=== PATIENT | female | born 1950 | race Caucasian/White ===

== ENCOUNTER 2018-05-08 13:59 | Outpatient (CLI) | payer MEDICARE, OTHER ==
[~2018-05-08] VITALS: Ht 157.5 cm; Wt 66.3 kg
[~2018-05-08 13:59] MED LIST: ASCO1TAB17 PO; CA C1TAB73 PO; CALC500T7 PO; CYCL10TA9 PO; DESV50TA PO; DOCU-165 PO; EST45C VG; HYDR1TAB66 PO; LACT1CAP62 PO; LORA1TAB PO; METO5TAB79 PO; MIRT15TA PO; MULT-974 PO; NAPR220C11 PO; OMG1KC PO; PANT40TA PO; SCR1T1 PO; TRAM50TA2 PO; [UNRECOGNIZED DRUG - SUPPLY]
[2018-05-08] MEDS ORDERED: EST30C VG (14:29)
[2018-05-08] MEDS ORDERED: MIRT15TA PO (14:29)
[2018-05-08] MEDS ORDERED: LORA1TAB PO (14:29)
[2018-05-08] MEDS ORDERED: TRAM50TA2 PO (14:29)
[2018-05-08] MEDS ORDERED: POLY17PO6 PO (14:29)
[2018-05-08] MEDS ORDERED: OMG1KC PO (14:29)
[2018-05-08] MEDS ORDERED: PANT40TA3 PO (14:29)
[2018-05-08] MEDS ORDERED: LACT1CAP72 PO (14:29)
[2018-05-08] MEDS ORDERED: CALC-823 PO (14:29)
[2018-05-08] MEDS ORDERED: CHOL10007 PO (14:29)
[2018-05-08] MEDS ORDERED: DOCU-163 PO (14:29)
[2018-05-08] MEDS ORDERED: OXYQ113.2 VG (14:29)
[2018-05-08] MEDS ORDERED: MULT-35 PO (14:29)
[2018-05-08] MEDS ORDERED: ASCO500C15 PO (14:29)
[2018-05-08] MEDS ORDERED: LEVO50TA PO (14:29)
[2018-05-08] MEDS ORDERED: LIFI1DRO OP (14:29)
[2018-05-08] MEDS ORDERED: HYDR-3812 PO (14:29)
[2018-05-08] MEDS ORDERED: DICL75TA2 PO (14:29)
[2018-05-08 14:39] VITALS: BP 149/77
[2018-05-08 15:32] LABS: BASOPHILS # (AUTO) 0.1 10^3/uL (0.0-0.1); BASOPHILS % (AUTO) 2 % (0-10); EOSINOPHILS # (AUTO) 0.2 10^3/uL (0.0-0.3); EOSINOPHILS % (AUTO) 3 % (0-10); HEMATOCRIT 38 % (35-52); HEMOGLOBIN 12.6 G/DL (11.5-16.0); LYMPHOCYTES % (AUTO) 25 % (12-44); MEAN CORPUSCULAR HEMOGLOBIN 28 PG (25-34); MEAN CORPUSCULAR HGB CONC 33 G/DL (32-36); MEAN CORPUSCULAR VOLUME 84 FL (80-99); MEAN PLATELET VOLUME 9.3 FL (7.4-10.4); MONOCYTES # (AUTO) 0.6 X 10^3 (0.0-1.0); MONOCYTES % (AUTO) 8 % (0-12); NEUTROPHILS % (AUTO) 63 % (42-75); PLATELET COUNT 282 10^3/uL (130-400); RED BLOOD COUNT 4.58 10^6/uL (4.35-5.85); RED CELL DISTRIBUTION WIDTH 14.3 % (10.0-14.5)
== END 2018-05-08 15:30 | disposition home or self-care (01) ==
LOC: PREOP 13:59
PROVIDERS: ATTEND Obstetrics & Gynecology
DX: Z01.812 Encounter for preprocedural laboratory examination (principal); Z11.2 Encounter for screening for other bacterial diseases; N81.10 Cystocele, unspecified
CPT/HCPCS: 36415; 85025; 86850; 86900; 86901; 87081

== ENCOUNTER 2018-05-15 08:49 | Day surgery (SDC) | payer MEDICARE, OTHER ==
[~2018-05-15] VITALS: Ht 157.5 cm; Wt 66.3 kg
[~2018-05-15 08:49] MED LIST changes: +ASCO500C15 PO; +CALC-823 PO; +CHOL10007 PO; +DICL75TA2 PO; +DOCU-163 PO; +EST30C VG; +HYDR-3812 PO; +LACT1CAP72 PO; +LEVO50TA PO; +LIFI1DRO OP; +MULT-35 PO; +OXYQ113.2 VG; +PANT40TA3 PO; +POLY17PO6 PO
[2018-05-15] MEDS ORDERED: LACTATED RINGERS 1,000 ML IV ONE (08:54)
[2018-05-15] MEDS ORDERED: LACTATED RINGERS 1,000 ML IV PRN (08:54)
[2018-05-15] MEDS ORDERED: ceFAZolin INJECTION 1,000 MG in NS (IVPB) 50 ML IV ONE (09:00)
[2018-05-15] MEDS ORDERED: metroNIDAZOLE 500MG/100ML IVPB 100 ML IV ONE (09:00)
--- NOTE | 2018-05-15 09:08 | Progress Note-Pre Operative ---
Pre-Operative Progress Note H&P Reviewed The H&P was reviewed, patient examined and no changes noted. Date Seen by Provider: May 15, 2018 Time Seen by Provider: 09:00 Date H&P Reviewed: May 15, 2018 Time H&P Reviewed: 09:15 Pre-Operative Diagnosis: POP, Cystocele BRITTANI DE SANTIAGO DO May 15, 2018 09:08
[2018-05-15] MEDS ORDERED: proPOfol 200 MG/20 ML (DIPRIVAN) VIAL IV ONE ×2 (09:49→10:56)
[2018-05-15] MEDS ORDERED: LIDOCAINE PF 2% 5 ML (XYLOCAINE) VIAL ONE (09:49)
[2018-05-15] MEDS ORDERED: SEVOFLURANE (ULTANE) 15 ML INHAL SOLN ONE ×9 (09:49→12:29)
[2018-05-15] MEDS ORDERED: ROCURONIUM 10 MG/ML 5 ML SYRINGE IV ONE (09:49)
[2018-05-15] MEDS ORDERED: fentaNYL INJECTION 100 MCG/2 ML AMP ONE (09:49)
[2018-05-15 09:50] VITALS: BP 125/74
[2018-05-15] MEDS ORDERED: MIDAZOLAM 2 MG/2 ML (VERSED) VIAL ONE (09:50)
[2018-05-15] MEDS ORDERED: FAMOTIDINE 20MG/2ML IV (PEPCID) ONE (09:56)
[2018-05-15] MEDS ORDERED: FAMOTIDINE 20MG/2ML IV (PEPCID) IV ONE (10:00)
[2018-05-15] MEDS ORDERED: BUPIVACAINE 0.25% 30 ML (SENSORCAINE) VIAL ONE (10:03)
[2018-05-15] MEDS ORDERED: LACTATED RINGERS 1,000 ML IV SCH (12:00)
[2018-05-15] MEDS ORDERED: VASOPRESSIN INJECTION 20 UNIT/ML VIAL ONE (12:05)
[2018-05-15] MEDS ORDERED: NS (IVPB) 100 ML ONE (12:07)
[2018-05-15] MEDS ORDERED: ESTRADIOL VAGINAL CREAM 42.5 GM (ESTRACE) VG ONE (12:16)
--- NOTE | 2018-05-15 12:50 | Discharge Inst-Women's Service ---
Discharge Inst-Women's Serv Depart Medication/Instructions New, Converted or Re-Newed RX: RX on Chart Consults/Follow Up Additional Follow Up: Yes Orders/Referrals Debra Cody in 7-10 days, Dr. Narvaez in 8 weeks Activity Activity: Activity as Tolerated Driving Instructions: No Driving for 1 Week NO SMOKING: NO SMOKING Nothing Inside Vagina: No Douching, No [place], No Tampons Diet Discharge Diet: No Restrictions Symptoms to Report to : Bleeding Excessive, Pain Increased, Fever Over 101 Degrees F, Vaginal Bleeding Increase, Questions/Concerns For Any Problems or Questions: Contact Your Physician Skin/Wound Care Infection Signs and Symptoms: Increased Redness, Foul Odor of Wound, Increased Drainage, Skin Itchy or Has a Rash, Increased Swelling, Temperature Above 101 F Operative Area Clean and Dry: Keep Incision Clean/Dry Stitches/[place]/Dermabond: Dermabond, Care of Stitches Bathing Instructions: BRITTANI June DO May 15, 2018 12:50 pm
[2018-05-15] MEDS ORDERED: SIME80TA16 PO (12:52)
[2018-05-15] MEDS ORDERED: HYDR-34 PO (12:52)
[2018-05-15] MEDS ORDERED: IBUP-844 PO (12:52)
[2018-05-15] MEDS ORDERED: DOCU100C37 PO (12:52)
[2018-05-15] MEDS ORDERED: DOCUSATE SODIUM 100 MG (COLACE) CAP PO PRN ×2 (13:00→15:30)
[2018-05-15] MEDS ORDERED: HYDROmorphone 2 MG/ML VIAL (DILAUDID) IV PRN (13:00)
[2018-05-15] MEDS ORDERED: CHLORASEPTIC LOZENGE MM PRN (13:00)
[2018-05-15] MEDS ORDERED: morphine INJ 10 MG/ML 1ML (SYR OR VIAL) IVP ONE (13:00)
[2018-05-15] MEDS ORDERED: ZOLPIDEM 5 MG (AMBIEN) TAB PO PRN (13:00)
[2018-05-15] MEDS ORDERED: ONDANSETRON 4 MG/2 ML (SDV) Z0FRAN IVP PRN (13:00)
[2018-05-15] MEDS ORDERED: ANTACID SUSP 30 ML UDC (MYLANTA) PO PRN (13:00)
[2018-05-15] MEDS ORDERED: MEPERIDINE (DEMEROL) INJ 50 MG/ML IVP ONE (13:00)
[2018-05-15] MEDS ORDERED: ONDANSETRON 4 MG/2 ML (SDV) Z0FRAN IV PRN (13:00)
[2018-05-15] MEDS ORDERED: SIMETHICONE 80 MG (MYLICON) CHEW PO PRN (13:00)
[2018-05-15] MEDS: LACTATED RINGERS 1,000 ML IV SCH ×3 (13:03→22:05)
--- NOTE | 2018-05-15 13:05 | Operative Report ---
Operative Report Date of Procedure/Surgery May 15, 2018 Surgeon (s) BRITTANI DE SANTIAGO DO Director Human Services (s): Debra ZARAGOZAP Post-Operative Diagnosis Same Procedure Performed Robotic-assisted total laparoscopic hysterectomy with bilateral salpingo-oophorectomy Anterior colporrhaphy Description of Procedure Anesthesia Type: General Estimated blood loss (mL): 50 ML's Specimen(s) collected/removed Uterus bilateral fallopian tubes and ovaries Packing: Vaginal packing Description of the Procedure Patient was taken to the operating room where general anesthesia was found to be adequate she's placed in the dorsal lithotomy position prepped and draped in the normal sterile fashion. A timeout was performed. Velez catheters placed using sterile technique. A weighted speculum that this is then inserted into the patient's vagina, a long Allis clamp was used to grasp the cervix at the 12 o'clock position. An 0 Vicryl sutures placed the anterior lip of the cervix. I then use a suture is my retraction point. The Allis clamp was removed. I then gently sound the uterine cavity depth which is found to be 5 cm. Incidentally perforating the uterus and the process of dilating the cervix with Hegar dilators, to go ahead and place the Irma uterine manipulator using a 3 cm colpotomy ring and an 8 cm tip. Once this is placed and secured against the cervix I remove all other instruments from the patient's vagina. A change of gloves is then performed and I take my attention to the abdomen where infraumbilically I infiltrate this area using quarter percent Marcaine. I then make an 8 mm incision using the knife and introduce a varies needle to the incision to intraperitoneal placement is confirmed using a saline drop test. I did proceed with insufflation using CO2 gas. An opening pressure of 4 mmHg is noted I proceed to a max pressure of 15 mmHg at which point I removed the varies needle and introduce an 8 mm blunt da Angélica camera trocar. Again I am able to confirm intraperitoneal placement using the da Angélica laparoscope. I did have the patient placed in steep Trendelenburg and am able to see all of my findings as described above. I placed 2 lateral trochars disease are both 8 mm trochars approximately 8 cm lateral to the infra umbilical trocar. Once these are in place I bring in the da Angélica robot and docked in the appropriate fashion placing the da Angélica vessel sealer and the left hand and the monopolar terry in the right hand. I then take my place at the operative console. I perform the following dissection bilaterally: Starting at the IP ligament, I isolate this and bipolar it with the vessel sealer and then cut it with the same. The round ligament is treated the same. I am then able to grasp the entire broad ligament using the vessel sealer and take this dissection down to the lower uterine segment, where the anterior leaflet is dissected to the anterior vaginal fornix and the posterior leaflet is taken to the posterior vaginal fornix this allows me to skeletonize the uterine vessels laterally. I can then grasp them and seal them using the vessel sealer. I then create a colpotomy using the monopolar terry at 12 oclock and taken then circumferentially around the vaginal cuff amputating the vagina from the cervix. The uterine and entire specimen is then removed through the vagina. The lateral vaginal apices are then colposuspended to the uterosacral ligaments using 2-0 vicryl suture in a figure of 8 fashion. The remainder of the cuff is then closed using 2-0 v-lock. I then undock the robot and proceed laparoscopically. I copiously irrigate the pelvis using NS, and no active bleeding is noted from any of my dissection planes. I place flowseal over all of my planes of dissection. The lateral trochars are then removed under direct visualization, the infraumbilcal trochar is then removed after releasing insufflation and introducing 10 ml of .25% marcaine. Skin is reapproximated using 4-0 monocryl in subcuticular fashion. Skin affix is applied and bandaids are placed over theses incisions. I then take my attention back to the vaginal where i infiltrated the margins of the cystocele using vasopressin a concentration of 20 u in 100 ml of NS. Once the tissue is blanched, I make a small incision at the distal margin, and undermine the tissue down the midline using Metzenbaum scissors. I then cut down this margin, and grasp the lateral aspects of the incision using Tclamps. I bluntly dissect the underlying vesicovaginal facia, and then once I have a clear margin, I reapproximate the same facia using 0 vicryl in plication fashion. Excess mucosa is then trimmed, and the incision of the cystocele is reapproximated down the midline of the cystocele using 3-0 vicryl suture in the a running locked fashion. The vagina is then packed using vaginal packing soaked in estrace cream. Velez catheter is left in place. Patient tolerated the procedure well and taken to recovery in stable condition. Lap and spong count is correct at the end of the procedure. Instrument count is correct at well. 1 gm of Ancef and 500 mg of Flagyl are given preoperatively for infection prophylaxis. Findings of the Procedure A grade 2 to grade 3 prolapsed cervix with a grade 3 to grade 4 cystocele. Significant filmy adhesions of the posterior cul-de-sac to the descending sigmoid colon. Allergies and Home Medications Allergies Coded Allergies: meloxicam (Unverified Adverse Reaction, Mild, NAUSEA, 05/15/18) Home Medications Ascorbic Acid 500 Mg Capsule.er, 500 MG PO BID, (Reported) Calcium Carbonate 500 Mg Tablet, 500 MG PO BID, (Reported) Cholecalciferol (Vitamin D3) 1,000 Unit Capsule, 1,000 UNIT PO DAILY, (Reported) Desvenlafaxine Succinate 50 Mg Tab.er.24h, 50 MG PO DAILY Prescribed by: RODRÍGUEZ HINES on 08/31/15 1840 Diclofenac Sodium 75 Mg Tablet.dr, 75 MG PO BID, (Reported) Docusate Sodium 100 Mg Capsule, 100 MG PO DAILY, (Reported) Docusate Sodium 100 Mg Capsule, 100 MG PO BID PRN for CONSTIPATION-1ST LINE Prescribed by: BRITTANI DE SANTIAGO on 05/15/18 125 Estrogens Conjugated 30 Gm Cr, 30 GM VG WEEK, (Reported) Hydrocodone Bit/Acetaminophen 1 Ea Tablet, 2 EA PO Q6H PRN for Pain-See Instructions Prescribed by: BRITTANI DE SANTIAGO on 05/15/18 125 Hydrocodone/Acetaminophen 1 Each Tablet, 1 EACH PO Q4-6HR PRN for PAIN-MODERATE, (Reported) Ibuprofen 600 Mg Tablet, 600 MG PO Q6H PRN for PAIN-MODERATE Prescribed by: BRITTANI DE SANTIAGO on 05/15/18 125 Lactobacillus Combo No.10 1 Each Capsule, 1 EACH PO DAILY, (Reported) Levothyroxine Sodium 50 Mcg Tablet, 50 MCG PO DAILY, (Reported) Lifitegrast 1 Each Droperette, 1 EACH OP BID, (Reported) Lorazepam 1 Mg Tablet, 1 MG PO TID, (Reported) Mirtazapine 15 Mg Tablet, 7.5 MG PO HS, (Reported) Multivitamin 1 Each Tablet, 1 EACH PO DAILY, (Reported) [place] 3 Polyunsat Fatty Acids 1,000 Mg Cap, 1,000 MG PO BID, (Reported) Oxyquinoline/Sod.lauryl Sulfat 113.4 Gm Jelly.appl, 113.4 GM VG 2X PER WEEK, ( Reported) Pantoprazole Sodium 40 Mg Tablet.dr, 40 MG PO DAILY, (Reported) Polyethylene Glycol 3350 17 Gm Powd.pack, PO HS, (Reported) Simethicone 80 Mg Tab.chew, 40 MG PO TID PRN for INDIGESTION 2ND LINE Prescribed by: BRITTANI DE SANTIAGO on 05/15/18 1252 Tramadol HCl 50 Mg Tablet, 50-100 MG PO TID PRN for PAIN-MODERATE, (Reported) Patient Home Medication List Home Medication List Reviewed: BRITTANI Howard DO May 15, 2018 13:05
--- NOTE | 2018-05-15 13:40 | NUR ---
PT ON WOMENS SERVICES FROM [facility] AT THIS TIME. REPORT RECEIVED FROM GIGI LARES. THIS RN INTRODUCES SELF TO PT AND FAMILY. PHYSICAL ASSESSMENT. VSS. PT CO PAIN. THIS RN WILL CHECK CHART AND GIVE MEDICAITON INDICATED. CALL LIGHT WITHIN REACH. FAMILY REMAINS AT BEDSIDE.
[2018-05-15 13:45] VITALS: BP 124/70
[2018-05-15] MEDS: KETOROLAC 30 MG/ML VIAL IV PRN ×2 (14:13→21:26)
--- NOTE | 2018-05-15 14:30 | NUR ---
DR DE SANTIAGO CALLED BY THIS RN. NO ANSWER, VOICEMAIL LEFT TO RETURN CALL. WOULD LIKE TO TALK TO ABOUT PT TAKING HOME MEDS.
[2018-05-15] MEDS ORDERED: [UNRECOGNIZED DRUG - OTHER] VG SCH (15:30)
[2018-05-15] MEDS ORDERED: SIMETHICONE PO PRN (15:30)
[2018-05-15] MEDS ORDERED: PATIENT MAY USE OWN MEDS, ALL MC SCH (15:30)
[2018-05-15] MEDS ORDERED: OXYQUINOLINE VG SCH (15:30)
[2018-05-15] MEDS ORDERED: ESTROGENS CONJ. CREAM 30 GM (PREMARIN) TUBE VG SCH (15:30)
[2018-05-15 16:00] VITALS: BP 139/62
[2018-05-15] MEDS: HYDROcodone/APAP 7.5 MG/325 MG (LORTAB, LORCET PLUS) TABLET PO PRN (19:00)
[2018-05-15 19:50] VITALS: BP 117/61
[2018-05-15] MEDS ORDERED: OMEGA 3 (FISH OIL) 1000 MG CAP PO SCH (21:00)
[2018-05-15] MEDS ORDERED: CALCIUM CARBONATE 500 MG (TUMS) TAB.CHEW PO SCH (21:00)
[2018-05-15] MEDS ORDERED: MIRTAZAPINE 15 MG (REMERON) TAB PO SCH (21:00)
[2018-05-15] MEDS: ASCORBIC ACID (VIT C) 500 MG TABLET PO SCH (21:28)
[2018-05-15] MEDS: LIFITEGRAST EYE OU SCH (21:46)
[2018-05-16 00:35] VITALS: BP 99/59
[2018-05-16 04:57] VITALS: BP 126/69
[2018-05-16] MEDS: KETOROLAC 30 MG/ML VIAL IV PRN (04:57)
[2018-05-16] MEDS: LACTATED RINGERS 1,000 ML IV SCH (06:05)
[2018-05-16] MEDS: HYDROcodone/APAP 7.5 MG/325 MG (LORTAB, LORCET PLUS) TABLET PO PRN ×2 (06:33→12:30)
[2018-05-16] MEDS: LIFITEGRAST EYE OU SCH (08:53)
[2018-05-16] MEDS: ASCORBIC ACID (VIT C) 500 MG TABLET PO SCH (08:54)
[2018-05-16 09:00] VITALS: BP 116/61
[2018-05-16] MEDS ORDERED: MULTIVITAMIN FOR HER PO SCH (09:00)
[2018-05-16] MEDS ORDERED: DOCUSATE SODIUM 100 MG (COLACE) CAP PO SCH (09:00)
[2018-05-16] MEDS ORDERED: VITAMIN D3 1,000 UNITS (CHOLECALCIFEROL) TABLET PO SCH (09:00)
[2018-05-16] MEDS ORDERED: LACTOBACILLUS COMBO NO 10 PO SCH (09:00)
[2018-05-16] MEDS ORDERED: PANTOPRAZOLE 40 MG (PROTONIX) TAB PO SCH (09:00)
[2018-05-16] MEDS ORDERED: DICLOFENAC SOD 75 MG (VOLTAREN) TAB NON-FORMULARY PO SCH (09:00)
[2018-05-16] MEDS ORDERED: LEVOTHYROXINE 50 MCG (LEVOTHROID) TAB PO SCH (09:00)
[2018-05-16] MEDS ORDERED: [UNRECOGNIZED DRUG - OTHER] PO SCH (09:00)
[2018-05-16] MEDS ORDERED: NON-FORMULARY MEDICATION 1 EA EA (Cholecalciferol (Vitamin D3) (Vitamin D3) 1,000 UNIT) PO SCH (09:00)
[2018-05-16] MEDS ORDERED: [UNRECOGNIZED DRUG - OTHER] PO SCH (09:00)
[2018-05-16] MEDS ORDERED: IBUPROFEN 600 MG (MOTRIN) TAB PO PRN (13:00)
[2018-05-16] MEDS ORDERED: BENZOCAINE/MENTHOL (DERMOPLAST) 56 ML CAN TP ONE (13:50)
--- NOTE | 2018-05-16 13:50 | NUR ---
OMAR MONTANA demonstrates understanding of discharge instructions and accurately returns instructions upon questioning. Copy of Post-Discharge Instructions and Medication Discharge Instructions given to PATIENT. OMAR MONTANA is able to manage continuing needs after discharge. Patients belongings returned to PATIENT. Skin dry and intact; no breakdown noted. Patient discharged from 3306-1 on 05-16-18 at 1350. OMAR MONTANA left floor via W/C, accompanied by STAFF AND FAMILY.
== END 2018-05-16 13:50 | disposition home or self-care (01) ==
LOC: SDC 08:49 → WS 13:00 → SDC 05-16 13:50
PROVIDERS: ATTEND Obstetrics & Gynecology
DX: N81.11 Cystocele, midline (principal); N87.9 Dysplasia of cervix uteri, unspecified; N83.201 Unspecified ovarian cyst, right side; N83.312 Acquired atrophy of left ovary; N70.11 Chronic salpingitis; K21.9 Gastro-esophageal reflux disease without esophagitis; K31.84 Gastroparesis; Z79.899 Other long term (current) drug therapy
CPT/HCPCS: 88307; 94664

== ENCOUNTER → 2018-08-18 | Outpatient (CLI) | payer MEDICARE, OTHER ==
[~2018-08-18] MED LIST changes: +DOCU100C37 PO; +HYDR-34 PO; +IBUP-844 PO; +SIME80TA16 PO
--- NOTE | 2018-08-19 16:32 | Diagnostic Imaging Report ---
INDICATION: Screening. COMPARISON: 05/15/2017 and 08/17/2015. TECHNIQUE: 2D and 3D bilateral screening mammography was performed with CAD. FINDINGS: Scattered fibroglandular densities are identified bilaterally. The parenchymal pattern is stable. No mass or malignant appearing microcalcifications are seen. There are benign parenchymal and vascular calcifications. The axillae are unremarkable. IMPRESSION: No mammographic features suspicious for malignancy are identified. ACR BI-RADS Category 2: Benign findings. Result letter will be mailed to the patient. Note: At least 10% of breast cancer is not imaged by mammography. Dictated by: Dictated on workstation # [id number]
== END ==
LOC: RAD 14:39
PROVIDERS: ATTEND Internal Medicine
DX: Z12.31 Encounter for screening mammogram for malignant neoplasm of breast (principal)
CPT/HCPCS: 77067

== ENCOUNTER → 2020-03-31 | Outpatient (CLI) | payer MEDICARE, OTHER ==
[~2020-03-31] MED LIST changes: +ACHD5005 PO; -ASCO500C15 PO; +ASCO500C18 PO; -HYDR-3812 PO; -PANT40TA3 PO; +PANT40TA52 PO; +TRM50T PO
--- NOTE | 2020-04-01 10:36 | Diagnostic Imaging Report ---
INDICATION: Routine screening. COMPARISON is made with prior mammograms of 08/18/2018 and 05/15/2017. 2-D and 3-D bilateral screening mammography was performed with CAD. Both breasts are heterogeneously dense, limiting the sensitivity of mammography. No mass or malignant appearing microcalcifications are seen. Axillae are unremarkable. IMPRESSION: BI-RADS Category 1. No mammographic features suspicious for malignancy are identified. ACR BI-RADS Category 1: Negative. Result letter will be mailed to the patient. Note: At least 10% of breast cancer is not imaged by mammography. Dictated by: Dictated on workstation # [id number]
== END ==
LOC: RAD 15:15
PROVIDERS: ATTEND Internal Medicine
DX: Z12.31 Encounter for screening mammogram for malignant neoplasm of breast (principal)
CPT/HCPCS: 77063; 77067

== ENCOUNTER → 2021-06-26 | Outpatient (CLI) | payer MEDICARE, OTHER ==
[~2021-06-26] MED LIST changes: +MIRT-96 PO; -MIRT15TA PO
--- NOTE | 2021-06-27 13:28 | Diagnostic Imaging Report ---
INDICATION: Routine screening. COMPARISON: 03/31/2020 and 08/18/2018. TECHNIQUE: 2D and 3D bilateral screening mammography was performed with CAD. FINDINGS: Both breasts are heterogeneously dense, limiting the sensitivity of mammography. The parenchymal pattern is stable. No mass or malignant-appearing microcalcifications are seen. The axillae are unremarkable. IMPRESSION: No mammographic features suspicious for malignancy are identified. ACR BI-RADS Category 1: Negative. Result letter will be mailed to the patient. Note: At least 10% of breast cancer is not imaged by mammography. Dictated by: Dictated on workstation # [id number]
== END ==
LOC: RAD 14:45
PROVIDERS: ATTEND Internal Medicine
DX: Z12.31 Encounter for screening mammogram for malignant neoplasm of breast (principal)
CPT/HCPCS: 77063; 77067

== ENCOUNTER → 2022-06-29 | Outpatient (CLI) | payer MEDICARE, OTHER ==
--- NOTE | 2022-06-29 17:40 | Diagnostic Imaging Report ---
INDICATION: Routine screening. Comparison is made with prior mammogram of 06/26/2021 and 03/31/2020. 2-D and 3-D bilateral screening mammography was performed with CAD. Both breasts are heterogeneously dense, limiting the sensitivity of mammography. The parenchymal pattern is stable. No mass or malignant-appearing microcalcifications are seen. Axillae are unremarkable. IMPRESSION: No mammographic features suspicious for malignancy are identified. ACR BI-RADS Category 1: Negative. Result letter will be mailed to the patient. Note: At least 10% of breast cancer is not imaged by mammography. BI-RADS Category 1 Dictated by: Dictated on workstation # [id number]
== END ==
LOC: RAD 14:45
PROVIDERS: ATTEND Internal Medicine
DX: Z12.31 Encounter for screening mammogram for malignant neoplasm of breast (principal)
CPT/HCPCS: 77063; 77067

== ENCOUNTER 2023-01-09 05:35 | Outpatient (CLI) | payer MEDICARE, OTHER ==
[~2023-01-09] VITALS: Ht 157.5 cm; Wt 68.0 kg
[2023-01-10] MEDS ORDERED: DICL35CA3 PO (14:41)
== END 2023-01-10 14:43 | disposition home or self-care (01) ==
LOC: PREOP 05:35
PROVIDERS: ATTEND Surgery
DX: Z01.818 Encounter for other preprocedural examination (principal)

== ENCOUNTER 2023-01-16 11:49 | Day surgery (SDC) | payer MEDICARE, OTHER ==
[~2023-01-16] VITALS: Ht 157.5 cm; Wt 68.0 kg
[~2023-01-16 11:49] MED LIST changes: +DICL35CA3 PO
--- NOTE | 2023-01-16 12:01 | Progress Note-Pre Operative ---
Pre-Operative Progress Note Date of Available H&P: Jan 16, 2023 Date H&P Reviewed: Jan 16, 2023 Time H&P Reviewed: 11:30 History & Physical: No changes noted Pre-Operative Diagnosis: screening o DHARA MARADIAGA MD Jan 16, 2023 12:01
--- NOTE | 2023-01-16 12:02 | Discharge Inst-Surgical ---
D/C Lap Instructions-ASHWINI Follow Up Activity as tolerated High Fiber Diet 25g or more per day Avoid Alcohol, Caffeine, Spicy [place] and Acid foods. Drink 64 fluid oz or more of fluids per day. Symptoms to Report: Fever over 101 degree F, Nausea/Vomiting If any problems/questions: Contact your physician or go to Emergency Room DHARA MARADIAGA MD Jan 16, 2023 12:02
[2023-01-16] MEDS ORDERED: ONDANSETRON 4 MG ORAL DISSOLVE TABLET PO PRN (12:15)
[2023-01-16] MEDS ORDERED: ONDANSETRON INJECTION 4 MG/2 ML (SDV) IVP PRN (12:15)
[2023-01-16] MEDS ORDERED: LACTATED RINGERS 1,000 ML 1,000 ML IV STA (12:42)
[2023-01-16] MEDS ORDERED: LIDOCAINE JELLY 2% 6 ML SYRINGE ONE (12:44)
[2023-01-16] MEDS ORDERED: LIDOCAINE JELLY 2% 6 ML SYRINGE MM PRN (12:45)
[2023-01-16 12:49] VITALS: BP 150/85
[2023-01-16 13:50] VITALS: BP 115/56
[2023-01-16 13:55] VITALS: BP 115/56
--- NOTE | 2023-01-16 14:04 | Progress Note-Post Operative ---
Post-Operative Progess Note Surgeon (s)/Windows Software Developer (s) Surgeon DHARA MARADIAGA MD Windows Software Developer: none Pre-Operative Diagnosis screening colo Post-Operative Diagnosis mild chronic stage 2 ext and int hemorrhoids, mild sigmoid diverticulosis, mild sigmoid colitis. Procedure & Operative Findings Date of Procedure 01/16/23 Procedure Performed/Findings colonoscopy with bx. Anesthesia Type mac Estimated Blood Loss Estimated blood loss (mL): minimal Specimens/Packing Specimens Removed sigmoid colon DHARA MARADIAGA MD Jan 16, 2023 14:04
[2023-01-16 14:25] VITALS: BP 119/57
--- NOTE | 2023-01-16 14:37 | Anesthesia-General Post-Op ---
MAC Patient Condition Mental Status/LOC: Same as Preop Cardiovascular: Satisfactory Nausea/Vomiting: Absent Respiratory: Satisfactory Pain: Controlled Complications: Absent Post Op Complications Complications None Follow Up Care/Instructions Patient Instructions None needed. Anesthesiology Discharge Order Discharge Order Patient is doing well, no complaints, stable vital signs, no apparent adverse anesthesia problems. No complications reported per nursing. CATY KASPER CRNA Jan 16, 2023 14:37
[2023-01-16 14:40] VITALS: BP 119/57
--- NOTE | 2023-01-16 19:02 | OPERATIVE REPORT ---
DATE OF SERVICE: 01/16/2023 ATTENDING PRIMARY CARE PHYSICIAN: Jacklyn Mendez DO PREOPERATIVE DIAGNOSIS: Screening colonoscopy. POSTOPERATIVE DIAGNOSES: Mild chronic stage II, external and internal hemorrhoids, moderate sigmoid diverticulosis, mild sigmoid colitis. PROCEDURE: Colonoscopy with biopsy. SURGEON: Dhara Livingston MD ANESTHESIA: Monitored anesthesia care. ESTIMATED BLOOD LOSS: Minimal. FINDINGS: Mild chronic stage II, external and internal hemorrhoids, moderate sigmoid diverticulosis, mild sigmoid colitis. DISPOSITION: The patient tolerated the procedure well. INDICATIONS: The patient is a 72-year-old female in need of a screening colonoscopy. Her last one was approximately 10 years ago and she believes this to be normal. She states that she is otherwise doing well. She does not report any major issues with diarrhea, nor constipation as well as no red blood per rectum, nor any dark tarry stools. She also does not report any family history of colon cancer. DESCRIPTION OF PROCEDURE: The patient was brought to the endoscopy suite and laid in the left lateral decubitus position. After adequate IV pain and sedative medications and monitored anesthesia care, a digital rectal examination was performed. Mild chronic stage II, external and internal hemorrhoids were identified. Normal sphincter tone was felt and there were no palpable masses. The endoscope was then intubated into the anus, rectum gently insufflated. The endoscope was then advanced through the valves of [place] of the rectum with no polyps or any neoplasms identified. Through the sigmoid colon, a moderate sigmoid diverticulosis identified. There was also a small segment of sigmoid colon with a mild amount of inflammation as well as very small ulcerative plaques. This may indicate a very low level asymptomatic inflammatory bowel disease. A biopsy was taken of this region with forceps with visualization of good hemostasis. The endoscope was advanced to the remainder of the descending, transverse and ascending colon to the cecum, which were normal. No other lesions identified. The endoscope was then slowly withdrawn while taking a second look and suctioning of residual air with no additional findings. The patient tolerated the procedure well. We will await the biopsy results; however, we will have her follow up in approximately 2 weeks to discuss any potential symptoms that she may have had in the past related to a mild inflammatory bowel disease. Either way because she is relatively asymptomatic, we would not recommend any further management; however, old in the future over time. If she does develop crampy abdominal pain, loose stools as well as red blood per rectum or a combination of all three. We will have her follow up sooner than a 10-year interval. Job ID: [id number] DocumentID: [id number] Dictated Date: 01/16/2023 13:49:46 Upkeep Worker Date: 01/16/2023 19:00:00 Dictated By: DHARA LIVINGSTON MD
== END 2023-01-16 14:40 | disposition home or self-care (01) ==
LOC: ENDO 11:49
PROVIDERS: ATTEND Surgery
DX: Z12.11 Encounter for screening for malignant neoplasm of colon (principal); K52.9 Noninfective gastroenteritis and colitis, unspecified; K64.4 Residual hemorrhoidal skin tags; K64.1 Second degree hemorrhoids